=== PATIENT | female | born 1960 | race Caucasian/White ===

== ENCOUNTER → 2019-04-07 | Outpatient (CLI) | payer OTHER ==
[~2019-04-07] MED LIST: ASCO500T6 PO; CALC-654 PO; CRAN450T9 PO; INSU100I23 SQ; INSU100V6 SQ; L.AC1CAP6 PO; LEVO50TA6 PO; OMG1KC PO; TRIM100T PO
--- NOTE | 2019-04-07 17:01 | Diagnostic Imaging Report ---
INDICATION: Fall with right ankle pain. TECHNIQUE: AP, oblique, and lateral views of the right ankle were obtained at 4:42 PM. FINDINGS: There is a comminuted distal fibular fracture both at and cephalad to the ankle joint level with moderate separation of the fracture fragments. There is a horizontal fracture of the medial malleolus of the distal tibia with medial displacement of the distal fragment. The major fragment is displaced about 1 cm medially. There is lateral subluxation of the talus relative to the tibia. IMPRESSION: Distal tibial and fibular fractures as described above with malalignment of the ankle joint. Dictated by: Dictated on workstation # [id number]
== END ==
LOC: RAD FS 16:04
PROVIDERS: ATTEND Nurse Practitioner Family
DX: S82.831A Other fracture of upper and lower end of right fibula, initial encounter for closed fracture (principal); S82.51XA Displaced fracture of medial malleolus of right tibia, initial encounter for closed fracture; S93.01XA Subluxation of right ankle joint, initial encounter; W19.XXXA Unspecified fall, initial encounter
CPT/HCPCS: 73610

== ENCOUNTER 2019-04-08 10:47 | Inpatient (IN) | payer OTHER ==
[2019-04-08] VITALS (10 sets, daily range): BP systolic 100–156; BP diastolic 59–88
[~2019-04-08] VITALS: Ht 165.1 cm; Wt 71.8 kg
[2019-04-08] MEDS ORDERED: MELATONIN 3 MG TABLET PO PRN (11:15)
[2019-04-08] MEDS ORDERED: CALCIUM CARBONATE 500 MG (TUMS) TAB.CHEW PO PRN (11:15)
[2019-04-08] MEDS ORDERED: fentaNYL INJECTION 100 MCG/2 ML AMP IVP PRN (11:15)
[2019-04-08] MEDS ORDERED: DOCUSATE SODIUM 100 MG (COLACE) CAP PO PRN (11:15)
[2019-04-08] MEDS ORDERED: POLYETHYLENE GLYCOL 17 GM (MIRALAX) PACK PO PRN (11:15)
[2019-04-08] MEDS ORDERED: ALPRAZolam 0.25 MG (XANAX) TAB PO PRN (11:15)
[2019-04-08] MEDS ORDERED: LOPERAMIDE 2 MG (IMODIUM) TABLET PO PRN (11:15)
[2019-04-08] MEDS ORDERED: HYDROcodone/APAP 5 MG/325 MG (LORTAB) TAB PO PRN (11:15)
[2019-04-08] MEDS ORDERED: diphenhydrAMINE 25 MG TAB (BENADRYL) PO PRN (11:15)
[2019-04-08] MEDS ORDERED: ACETAMINOPHEN 500 MG TAB (TYLENOL) PO PRN ×2 (11:15→23:15)
--- OUTSIDE RECORDS SUMMARY | 2019-04-08 12:48 | XMS REPORT | Continuity of Care Document ---
Author Organization Unknown Address Unknown Allergies There is no data. Medications There is no data. Problems There is no data. Procedures There is no data. Results There is no data. Encounters ACCT No. Visit Date/Time Discharge Status Pt. Type Provider Facility Loc./Unit Complaint [id number] 02/17/2019 13:20:00 02/17/2019 23:59:59 CLS Outpatient [facility]
[2019-04-08] MEDS ORDERED: FAMOTIDINE 20MG/2ML IV (PEPCID) IV ONE (13:45)
[2019-04-08] MEDS ORDERED: SCOPOLAMINE 1.5 MG (TRANSDERM-SCOP) PATCH TOP ONE (13:45)
[2019-04-08] MEDS ORDERED: ONDANSETRON 4 MG/2 ML (SDV) Z0FRAN IV ONE (13:45)
--- NOTE | 2019-04-08 14:09 | History & Physical-Hospitalist ---
History of Present Illness HPI/Chief Complaint Chief complaint: Right ankle fracture with dislocation in need of urgent surgery. HPI: This is a 58yoWF clinic Pt of [facility] in [place] [facility] obed has a past medical history of type 1 DM maintained on Novolog before meals and long- acting in the morning, who fell yesterday during an episode of hypoglycemia and sustained an ankle injury. She presented to the clinic yesterday, X-Ray was obtained showing a complicated ankle fracture of a distal tibial and fibular fractures with dislocation of the ankle joint. Dr. Johnson called me directly requested admission to the hospitalist service for IRIF today to decrease a vascular necrosis possibility of the ankle joint. Currently she is not having any pain, dressing and brace were applied to the ankle and overall feels fine. She is prepared for Sx by Dr. Johnson today. I did review the office note from [facility] faxed over to me by supportive employment case manager and noted her Cipro allergy that causes a rash. Her is at the bedside. 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 She had two children, her son several years ago when he was [age] years old and was playing in a swollen [place] when he was taken under the current and drowned. Source: patient, family, RN/MD Exam Limitations: no limitations Date Seen 04/08/19 Time Seen by a Provider: 12:45 Attending Physician Abena Ferguson DO [facility] Referring Physician Date of Admission April 08, 2019 at 12:40 Home Medications & Allergies Home Medications Reviewed patient Home Medication Reconciliation performed by pharmacy medication reconciliations compressor service technician and/or nursing. Patients Allergies have been reviewed. Allergies Allergies Coded Allergies ciprofloxacin (Verified Allergy, Unknown, Rash, 04/08/19) Past Fofwpvl-Dpanbh-Rvmmtu Hx Past Med/Social Hx: Reviewed Nursing Past Med/Soc Hx, Reviewed and Corrections made Patient Social History Marrital Status: Employed/Student: unemployed (homemaker) Alcohol Use: Denies Use Recreational Drug Use: No Smoking Status: Never a Smoker Physical Abuse Screen: No Sexual Abuse: No Recent Foreign Travel: No Contact w/other who traveled: No Recent Hopitalizations: No Recent Infectious Disease Expo: No Seasonal Allergies Seasonal Allergies: Yes Past Medical History Female Reproductive Disorders: Endometriosis Musculoskeletal: Fractures Endocrine: Diabetes, Insulin dep Are Your Blood Sugars Over 250: Yes History of Blood Disorders: No Review of Systems Constitutional: see HPI, weakness EENTM: no symptoms reported Respiratory: no symptoms reported Cardiovascular: no symptoms reported Gastrointestinal: no symptoms reported Musculoskeletal: joint pain (right ankle) Skin: no symptoms reported Psychiatric/Neurological: No Symptoms Reported All Other Systems Reviewed Negative Unless Noted: Yes Physical Exam Physical Exam Vital Signs Vital Signs - First Documented 04/08/19 04/08/19 12:54 16:58 Temp 97.8 Pulse 77 Resp 18 B/P (MAP) 138/88 Pulse Ox 98 O2 Delivery Room Air O2 Flow Rate 6 Capillary Refill : Height, Weight, BMI Height: 5'5.00" Weight: 158lbs. 3.0oz. [id number]; BMI Method: General Appearance: No Apparent Distress, WD/WN, Anxious Eyes: Right Eye Normal Inspection, Right Eye PERRL HEENT: PERRL/EOMI, Normal ENT Inspection, Pharynx Normal, Moist Mucous Membranes Neck: Full Range of Motion, Normal Inspection, Non Tender Respiratory: Chest Non Tender, Lungs Clear, Normal Breath Sounds, No Accessory Muscle Use, No Respiratory Distress Cardiovascular: Regular Rate, Rhythm, No Edema, No Gallop, No JVD, No Murmur, Normal Peripheral Pulses Gastrointestinal: Normal Bowel Sounds, No Organomegaly, No Pulsatile Mass, Non Tender, Soft Back: Normal Inspection, No CVA Tenderness, No Vertebral Tenderness Extremity: Normal Capillary Refill, Normal Inspection, Normal Range of Motion (except right ankle in brace), Non Tender, No Calf Tenderness, No Pedal Edema Neurologic/Psychiatric: Alert, Oriented x3, No Motor/Sensory Deficits, Normal Mood/Affect Skin: Normal Color, Warm/Dry Lymphatic: No Adenopathy Results Results/Procedures Labs Laboratory Tests 04/08/19 14:40 Patient resulted labs reviewed. Assessment/Plan Admission Diagnosis Assessment: Complicated distal tibia and fibular fracture with dislocation in need of urgent repair Type 1 DM on insulin Recent hypoglycemia resulting in fall with subsequent right ankle fracture Plan: Monitor sugars closely DVT PPx after surgery Pain control Admission Status: Inpatient Order (span 2 midnights) Reason for Inpatient Admission: Type 1 DM with right ankle fracture will need close monitoring of sugars while under stress of surgery Diagnosis/Problems Diagnosis/Problems (1) Ankle fracture, right Status: Acute Qualifiers: Encounter type: initial encounter Fracture type: closed Qualified Codes: S82.891A - Other fracture of right lower leg, initial encounter for closed fracture (2) Type 1 diabetes mellitus Status: Chronic Qualifiers: Diabetes mellitus complication status: without complication Qualified Codes: E10.9 - Type 1 diabetes mellitus without complications Clinical Quality Measures DVT/VTE Risk/Contraindication: Risk Factor Score Per Nursin RFS Level Per Nursing on Admit: 4+=Very High ABENA FERGUSON DO April 08, 2019 14:09
[2019-04-08] MEDS ORDERED: LEVO50TA6 PO (14:12)
--- NOTE | 2019-04-08 14:14 | NUR ---
LEOBARDO MARROQUIN admitted to room 404-1, with an admitting diagnosis of RIGHT ANKLE FRACTURE, on 04/08/19, accompanied by .LEOBARDO MARROQUIN introduced to surroundings, call light, bed controls, phone, TV, temperature control, lights, meal times, smoking policy, visitor policy, side rail policy, bathrooms and showers. Patient Rights given to patient in the handbook. LEOBARDO MARROQUIN verbalizes understanding that [facility] is not responsible for the loss or damage to any personal effects or valuables that are kept in the patients posession during their hospitalization. LEOBARDO MARROQUIN verbalizes understanding of Interdisciplinary Patient Education. Patient and/or family were informed about the Rapid Response Team and its purpose.
--- NOTE | 2019-04-08 14:15 | NUR ---
RESTORATION OFFICER HERE TO TRANSPORT PATIENT TO PROCEDURE.
[2019-04-08] MEDS ORDERED: BUPIVACAINE 0.5% 30 ML (SENSORCAINE) VIAL ONE (14:18)
--- NOTE | 2019-04-08 14:24 | NUR ---
TOOK PATIENT DOWNSTAIRS PRIOR TO ME BEING ABLE TO INTERVIEW HER. I UPDATED THE MED REC WITH ONE PRESCRIPTION THAT WAS RECENTLY FILLED ACCORDING TO THE EXT MED HX. WILL CHECK BACK WHEN PATIENT RETURNS TO HER ROOM TO VERIFY.
[2019-04-08] MEDS: LACTATED RINGERS 1,000 ML IV PRN ×2 (14:27→16:47)
[2019-04-08] MEDS ORDERED: LIDOCAINE PF 2% 5 ML (XYLOCAINE) VIAL ONE (14:37)
[2019-04-08] MEDS ORDERED: proPOfol 200 MG/20 ML (DIPRIVAN) VIAL IV ONE (14:37)
[2019-04-08] MEDS ORDERED: SUCCINYLCHOLINE INJ 100 MG/5 ML SYR ONE (14:37)
[2019-04-08] MEDS ORDERED: ONDANSETRON 4 MG/2 ML (SDV) Z0FRAN ONE (14:37)
[2019-04-08] MEDS ORDERED: ROCURONIUM 10 MG/ML 5 ML SYRINGE IV ONE (14:37)
[2019-04-08] MEDS ORDERED: fentaNYL INJECTION 100 MCG/2 ML AMP ONE (14:38)
[2019-04-08] MEDS ORDERED: MIDAZOLAM 2 MG/2 ML (VERSED) VIAL ONE (14:38)
[2019-04-08 14:49] LABS: BASOPHILS % (AUTO) 0 % (0-10); EOSINOPHILS # (AUTO) 0.1 10^3/uL (0.0-0.3); EOSINOPHILS % (AUTO) 1 % (0-10); HEMATOCRIT 36 % (35-52); HEMOGLOBIN 12.2 G/DL (11.5-16.0); LYMPHOCYTES # (AUTO) 1.8 X 10^3 (1.0-4.0); LYMPHOCYTES % (AUTO) 25 % (12-44); MEAN CORPUSCULAR HEMOGLOBIN 29 PG (25-34); MEAN CORPUSCULAR HGB CONC 34 G/DL (32-36); MEAN CORPUSCULAR VOLUME 86 FL (80-99); MEAN PLATELET VOLUME 9.1 FL (7.4-10.4); MONOCYTES # (AUTO) 0.8 X 10^3 (0.0-1.0); MONOCYTES % (AUTO) 11 % (0-12); NEUTROPHILS # (AUTO) 4.6 X 10^3 (1.8-7.8); NEUTROPHILS % (AUTO) 63 % (42-75); PLATELET COUNT 225 10^3/uL (130-400); RED CELL DISTRIBUTION WIDTH 12.2 % (10.0-14.5); WHITE BLOOD COUNT 7.4 10^3/uL (4.3-11.0)
[2019-04-08] MEDS ORDERED: ceFAZolin INJECTION 1,000 MG VIAL IV ONE (15:00)
[2019-04-08] MEDS ORDERED: ceFAZolin INJECTION 2,000 MG ONE (15:02)
[2019-04-08 15:10] LABS: ALANINE AMINOTRANSFERASE 26 U/L (0-55); ALBUMIN 3.8 GM/DL (3.2-4.5); ALKALINE PHOSPHATASE 77 U/L (40-136); BILIRUBIN,TOTAL 0.5 MG/DL (0.1-1.0); BUN/CREATININE RATIO 9; CALCIUM 9.4 MG/DL (8.5-10.1); CARBON DIOXIDE 26 MMOL/L (21-32); CHLORIDE 104 MMOL/L (98-107); CREATININE SERUM 0.85 MG/DL (0.60-1.30); GFR ESTIMATED > 60; GLUCOSE 177 MG/DL (70-105); POTASSIUM 3.9 MMOL/L (3.6-5.0); SODIUM 137 MMOL/L (135-145); TOTAL PROTEIN 6.6 GM/DL (6.4-8.2)
[2019-04-08] MEDS ORDERED: morphine INJ 10 MG/ML 1ML (SYR OR VIAL) ONE (15:45)
[2019-04-08] MEDS ORDERED: SEVOFLURANE (ULTANE) 15 ML INHAL SOLN ONE (16:30)
--- NOTE | 2019-04-08 17:00 | Diagnostic Imaging Report ---
EXAMINATION: Right ankle, fluoroscopic images. COMPARISON: April 07, 2019. HISTORY: 58-year-old female, open reduction and internal fixation of right ankle fracture. FINDINGS: 160.3 seconds of fluoroscopic time was utilized for assistance with the procedure. There has been placement of sideplate and screw fixation hardware at the level of the distal fibula with syndesmotic screw. There are also two medial malleolar lag screws present. There is limited bone and trabecular detail on fluoroscopic imaging. There is altered contour of the posterior malleolus likely relating to prior posterior malleolar fracture. IMPRESSION: Fluoroscopy for assistance with open reduction and internal fixation of distal fibular and tibial fractures. Dictated by: Dictated on workstation # [id number]
[2019-04-08] MEDS ORDERED: ONDANSETRON 4 MG/2 ML (SDV) Z0FRAN IVP PRN (17:15)
[2019-04-08] MEDS ORDERED: HYDROmorphone 2 MG/ML VIAL (DILAUDID) IV ONE (17:15)
[2019-04-08] MEDS ORDERED: morphine INJ 10 MG/ML 1ML (SYR OR VIAL) IVP ONE (17:15)
[2019-04-08] MEDS ORDERED: PROMETHAZINE INJ 25 MG/ML (PHENERGAN) AMP IVP ONE (17:15)
[2019-04-08] MEDS ORDERED: MEPERIDINE (DEMEROL) INJ 50 MG/ML IVP ONE (17:15)
--- NOTE | 2019-04-08 17:55 | NUR ---
PATIENT BACK IN ROOM FROM RECOVERY. DEPENDENCY PROGRAM DIRECTOR HERE FOR BEDSIDE REPORT. RIGHT ANKLE OBSERVED AND PATIENT IS IN BED, STABLE ON ROOM AIR. NO COMPLAINTS OF PAIN OR FURTHER NEEDS AT THIS TIME.
[2019-04-08] MEDS: SENNA W/DOCUSATE (SENOKOT S) TABLET PO SCH (19:49)
[2019-04-08] MEDS ORDERED: ceFAZolin INJECTION 1,000 MG in WATER (STERILE) FOR INJECTION 10 ML IV ONE (22:45)
[2019-04-09] MEDS: KETOROLAC 30 MG/ML VIAL IVP PRN ×2 (02:07→12:52)
[2019-04-09 03:53] VITALS: BP 127/63
[2019-04-09] MEDS ORDERED: ceFAZolin INJECTION 1,000 MG in WATER (STERILE) FOR INJECTION 10 ML IV ONE (04:45)
[2019-04-09 05:47] LABS: BASOPHILS % (AUTO) 0 % (0-10); EOSINOPHILS # (AUTO) 0.1 10^3/uL (0.0-0.3); EOSINOPHILS % (AUTO) 1 % (0-10); HEMATOCRIT 35 % (35-52); HEMOGLOBIN 11.8 G/DL (11.5-16.0); LYMPHOCYTES # (AUTO) 1.5 X 10^3 (1.0-4.0); LYMPHOCYTES % (AUTO) 14 % (12-44); MEAN CORPUSCULAR HEMOGLOBIN 29 PG (25-34); MEAN CORPUSCULAR HGB CONC 33 G/DL (32-36); MEAN CORPUSCULAR VOLUME 88 FL (80-99); MEAN PLATELET VOLUME 9.6 FL (7.4-10.4); MONOCYTES % (AUTO) 10 % (0-12); NEUTROPHILS # (AUTO) 7.9 X 10^3 (1.8-7.8); NEUTROPHILS % (AUTO) 75 % (42-75); PLATELET COUNT 210 10^3/uL (130-400); WHITE BLOOD COUNT 10.5 10^3/uL (4.3-11.0)
[2019-04-09 06:10] LABS: ALANINE AMINOTRANSFERASE 22 U/L (0-55); ALBUMIN 3.6 GM/DL (3.2-4.5); ALKALINE PHOSPHATASE 81 U/L (40-136); BILIRUBIN,TOTAL 0.5 MG/DL (0.1-1.0); BUN/CREATININE RATIO 10; CALCIUM 8.7 MG/DL (8.5-10.1); CARBON DIOXIDE 27 MMOL/L (21-32); CHLORIDE 102 MMOL/L (98-107); CREATININE SERUM 0.81 MG/DL (0.60-1.30); GFR ESTIMATED > 60; GLUCOSE 98 MG/DL (70-105); POTASSIUM 3.6 MMOL/L (3.6-5.0); SODIUM 136 MMOL/L (135-145); TOTAL PROTEIN 6.3 GM/DL (6.4-8.2)
[2019-04-09 08:00] VITALS: BP 116/74
[2019-04-09] MEDS ORDERED: CRAN450T9 PO (08:37)
[2019-04-09] MEDS ORDERED: INSU100I23 SQ (08:37)
[2019-04-09] MEDS ORDERED: INSU100V6 SQ (08:37)
[2019-04-09] MEDS ORDERED: CALC-654 PO (08:37)
[2019-04-09] MEDS ORDERED: ASCO500T6 PO (08:37)
[2019-04-09] MEDS ORDERED: L.AC1CAP6 PO (08:37)
[2019-04-09] MEDS ORDERED: OMG1KC PO (08:37)
[2019-04-09] MEDS ORDERED: TRIM100T PO (08:37)
--- NOTE | 2019-04-09 08:38 | NUR ---
SPOKE WITH THE PATIENT ABOUT HER MEDICATIONS. SHE LISTED WHAT SHE IS TAKING. SHE RECEIVES SAMPLES OF HER LANTUS AND HUMALOG FROM HER DR OFFICE. SHE STATES SHE TAKES LEVOTHYROXINE DAILY AND TRIMETHOPRIM HS PRESCRIPTION WELL. SHE TAKES THE FOLLOWING OTC: PROBIOTIC DAILY VITAMIN C DAILY CALCIUM DAILY CRANBERRY BID FISH OIL DAILY
[2019-04-09] MEDS: SENNA W/DOCUSATE (SENOKOT S) TABLET PO SCH (08:42)
[2019-04-09] MEDS ORDERED: ENOXAPARIN 40 MG/0.4 ML (LOVENOX) SYR SC SCH (09:00)
[2019-04-09] MEDS ORDERED: ACHD5005 PO (09:50)
[2019-04-09] MEDS ORDERED: APIX2.5T PO (09:50)
[2019-04-09] MEDS ORDERED: SENN-141 PO (09:50)
--- NOTE | 2019-04-09 09:51 | Discharge Summary-Hospitalist ---
Diagnosis/Chief Complaint Date of Admission April 08, 2019 at 12:40 Date of Discharge Discharge Date: April 09, 2019 Admission Diagnosis Assessment: Complicated distal tibia and fibular fracture with dislocation in need of urgent repair Type 1 DM on insulin Recent hypoglycemia resulting in fall with subsequent right ankle fracture Plan: Monitor sugars closely DVT PPx after surgery Pain control Discharge Diagnosis (1) Ankle fracture, right Status: Acute (2) Type 1 diabetes mellitus Status: Chronic Discharge Summary Discharge Physical Exam Allergies: Coded Allergies: ciprofloxacin (Verified Allergy, Unknown, Rash, 04/08/19) Vitals & I&Os Vital Signs Date Time Temp Pulse Resp B/P (MAP) Pulse Ox O2 Delivery O2 Flow Rate FiO2 04/09/19 15:19 04/09/19 11:38 99.6 95 20 95 Room Air 04/08/19 17:36 3 General Appearance: No Apparent Distress, WD/WN, Chronically ill Respiratory: Chest Non Tender, Lungs Clear, Normal Breath Sounds, No Accessory Muscle Use, No Respiratory Distress Cardiovascular: Regular Rate, Rhythm, No Edema, No Gallop, No JVD, No Murmur, Normal Peripheral Pulses Extremity: Other (right foot in dressing and immobile) Neurologic/Psychiatric: Alert, Oriented x3, No Motor/Sensory Deficits, Normal Mood/Affect Hospital Course Was the Problem List Reviewed?: Yes Had an uneventful sx after Dr. Johnson repair the right ankle fracture with dislocation Pain is a little bit difficult to handle but the pain medication really helps Has not had a BM for two days so will initiate treatment Junito hunter was printed off in order to DC her in DVT prophylaxis She goes to [facility] in [place] also Reviewed home meds and started all of them No nausea noted DC is planned with close f/u Labs (last 24 hrs) Laboratory Tests 04/08/19 22:11: Glucometer 125H 04/09/19 05:06: Glucometer 74 04/09/19 05:17: White Blood Count 10.5, Red Blood Count 4.03L, Hemoglobin 11.8, Hematocrit 35, Mean Corpuscular Volume 88, Mean Corpuscular Hemoglobin 29, Mean Corpuscular Hemoglobin Concent 33, Red Cell Distribution Width 12.0, Platelet Count 210, Mean Platelet Volume 9.6, Neutrophils (%) (Auto) 75, Lymphocytes (%) (Auto) 14, Monocytes (%) (Auto) 10, Eosinophils (%) (Auto) 1, Basophils (%) (Auto) 0, Neutrophils # (Auto) 7.9H, Lymphocytes # (Auto) 1.5, Monocytes # (Auto) 1.0, Eosinophils # (Auto) 0.1, Basophils # (Auto) 0.0, Sodium Level 136, Potassium Level 3.6, Chloride Level 102, Carbon Dioxide Level 27, Anion Gap 7, Blood Urea Nitrogen 8, Creatinine 0.81, Estimat Glomerular Filtration Rate > 60, BUN/Creatinine Ratio 10, Glucose Level 98, Calcium Level 8.7, Corrected Calcium 9.0, Total Bilirubin 0.5, Aspartate Amino Transf (AST/SGOT) 26, Alanine Aminotransferase (ALT/SGPT) 22, Alkaline Phosphatase 81, Total Protein 6.3L, Albumin 3.6 04/09/19 10:28: Glucometer 193H Patient resulted labs reviewed. Pending Labs Discussion & Recommendations Discharge Planning: <30 minutes discharge planning Discharge Home Medications: Active Scripts Active Senna (Sennosides) 8.6 Mg Tablet 8.6 Mg PO BID Eliquis (Apixaban) 2.5 Mg Tablet 2.5 Mg PO BID Hydrocodone/Acetaminophen 5/325mg Tablet (Acetaminophen/Hydrocodone Bitart) 1 Tab Tab 1 Tab PO Q4H PRN Reported Fish Oil 1,000 mg Capsule (Logan 3 Polyunsat Fatty Acids) 1,000 Mg Cap 1,000 Mg PO DAILY Cranberry (Cranberry Fruit) 450 Mg Tablet 450 Mg PO BID Calcium 500 + D Tablet (Calcium Carbonate/Vitamin D3) 1 Each Tablet 1 Tab PO DAILY Vitamin C (Ascorbic Acid) 500 Mg Tablet 500 Mg PO DAILY Probiotic (L.acidoph & Paracasei,B.lactis) 1 Each Capsule 1 Cap PO DAILY Humalog Kwikpen (Insulin Lispro) 100 Unit/1 Ml Insuln.pen 5-8 Unit SQ TIDAC Lantus (Insulin Glargine,Hum.rec.anlog) 100 Unit/1 Ml Vial 25 Unit SQ DAILY Trimethoprim 100 Mg Tablet 100 Mg PO HS Levothyroxine Sodium 50 Mcg Tablet 50 Mcg PO DAILY Instructions to patient/family Please see electronic discharge instructions given to patient. Clinical Quality Measures DVT/VTE Risk/Contraindication: Risk Factor Score Per Nursin RFS Level Per Nursing on Admit: 4+=Very High Problem Qualifiers (1) Ankle fracture, right: Encounter type: initial encounter Fracture type: closed Qualified Codes: S82.891A - Other fracture of right lower leg, initial encounter for closed fracture (2) Type 1 diabetes mellitus: Diabetes mellitus complication status: without complication Qualified Codes: E10.9 - Type 1 diabetes mellitus without complications ARSLAN MCLEOD DO April 09, 2019 09:51
[2019-04-09] MEDS ORDERED: POLYETHYLENE GLYCOL 17 GM (MIRALAX) PACK PO ONE (10:00)
[2019-04-09] MEDS ORDERED: SENNA W/DOCUSATE (SENOKOT S) TABLET PO ONE (10:00)
--- NOTE | 2019-04-09 10:00 | NUR ---
CM/SS spoke with patient for discharge plans. She did not feel had any needs at discharge. Patient provided with a Eliquis card for 30day trial.
--- NOTE | 2019-04-09 10:14 | Physical Therapy Evaluation ---
PT Evaluation-General Medical Diagnosis Admission Date April 08, 2019 at 12:40 Medical Diagnosis: ORIF right ankle Onset Date: April 08, 2019 Therapy Diagnosis Therapy Diagnosis: impaired mobility, endurance, balance Height/Weight Height (Feet): 5 Height (Inches): 5.00 Weight (Pounds): 158 Weight (Ounces): 3.0 Precautions Precautions/Isolations: Fall Prevention, Standard Precautions Weight Bear Status Right Lower Extremity: Right Non Weight Bearing Referral Physician: Richard Johnson DPM Reason for Referral: Evaluation/Treatment Medical History Additional Medical History Past Medical History Female Reproductive Disorders: Endometriosis Musculoskeletal: Fractures Endocrine: Diabetes, Insulin dep Are Your Blood Sugars Over 250: Yes History of Blood Disorders: No Reviewed History: Yes Social History Home: Single Level Current Living Status: Spouse Entry Into Home: Stairs Without Railing PT Steps Into Home: 2 Prior/Core FIM Prior Level of Function Therapy Code Descriptions/Definitions Functional Loving Measure: 0=Not Assessed/NA 4=Minimal Assistance 1=Total Assistance 5=Supervision or Setup 2=Maximal Assistance 6=Modified Loving 3=Moderate Assistance 7=Complete Loving Therapy Quality Codes: 6 Independent with activity with or without an assistive device 5 Patient requires set up or clean up by helper. Patient completes activity by themselves 4 Supervision or touching assist (CGA). [place] provide cues , steadying assist 3 The helper provides less than half the effort to complete the activity 2 The helper provides more than half the effort to complete the activity 1 Dependent. The helper does all the effort to complete an activity 7 Patient refused to complete or attempt activity 9 The patient did not perform the activity before the current illness or injury 88 Not attempted due to Medical conditions or safety concerns Functional Abilities and Goals: Independent: Patient completed the activities by him/herself, with or without an assistive device, with no assistance from a helper. Needed Some Help: Patient needed partial assistance from another person to complete activities. Dependent: A helper completed the activities for the patient. Unknown: Not Applicable: Bed Mobility: 7 Transfers (B,C,W/C) (FIM): 7 Gait: 7 Stairs: 7 Indoor Mobility (Ambulation): Independent Stairs: Independent PT Evaluation-Current Subjective Patient in bed pre tx, agrees to PT, has no pain at rest. Pt/Family Goals "I hope to go home today". Objective Patient Orientation: Person, Place, Situation splint right ankle and leg ROM/Strength ROM Lower Extremities WNL except for right ankle Strength Lower Extremities right lower extremity (hip flexion 4+/5), left lower extremity (hip flexion 4/5, knee flexion 5/5, knee extension 5/5, dorsiflexion 5/5) Neuromuscular (Tone, Coordination, Reflexes) NT Sensory Vision: Wears Glasses Hearing: Functional Sensation Right Lower Extremit: Intact Sensation Left Lower Extremity: Intact Transfers Therapy Code Descriptions/Definitions Functional Loving Measure: 0=Not Assessed/NA 4=Minimal Assistance 1=Total Assistance 5=Supervision or Setup 2=Maximal Assistance 6=Modified Loving 3=Moderate Assistance 7=Complete Loving Transfers (B, C, W/C) (FIM): 5 Scootin Rollin Supine to/from Sit: 6 Sit to/from Stand: 5 Gait Mode of Locomotion: Walk Anticipated Mode of Locomotion: Walk Gait (FIM): 2 Distance: 60' Gait Level of Assist: 5 Gait Persons Needed: 1 Gait Assistive Device: FWW Comments/Gait Description Patient has little difficulty maintaining NWB on right leg, hops easily on her left leg using the walker. She did need cues to slow down. Balance Sitting Static: Normal Sitting Dynamic: Normal Standing Static: Good Standing Dynamic: Good Treatment supine RLE exercises x15 (HS, QS) Assessment/Needs Patient has impaired mobility, strength, balance, endurance. She does well with maintaining her NWB on the right leg with transfers and ambulation. Rehab Potential: Fair PT Short Term Goals Short Term Goals Time Frame: Apr 16, 2019 Transfers (B,C,W/C) (FIM): 6 Gait (FIM): 6 Gait Distance Comment: 150' Gait Level of Assist: 6 Gait Assistive Device: FWW PT Plan Problem List Problem List: Activity Tolerance, Functional Strength, Safety, Balance, Gait, Transfer Treatment/Plan Treatment Plan: Continue Plan of Care Treatment Plan: Education, Functional Activity Carolyn, Functional Strength, Gait, Safety, Therapeutic Exercise, Transfers Treatment Duration: Apr 16, 2019 Frequency: 11 times per week Estimated Hrs Per Day: .25 hour per day (15-30') Patient and/or Family Agrees t: Yes Safety Risks/Education Patient Education: Gait Training, Transfer Techniques, Reviewed Precautions, Correct Positioning, Safety Issues Teaching Recipient: Patient Teaching Methods: Demonstration, Discussion Response to Teaching: Reinforcement Needed Discharge Recommendations Plan Patient will perform bed mobility and transfer training, balance and endurance training, functional strengthening, stair training, gait training, and education, to improve functional mobility and independence at home. Therapy D/C Recommendations: Home w/ Family Support Time/GCodes Time In: 0950 Time Out: 1005 Total Billed Treatment Time: 15 Total Billed Treatment 1 visit EVL 15' BARRY CROWLEY PT April 09, 2019 10:14
[2019-04-09 11:38] VITALS: BP 104/67
--- NOTE | 2019-04-09 13:23 | Anesthesia-General Post-Op ---
General Patient Condition Mental Status/LOC: Same as Preop Cardiovascular: Satisfactory Nausea/Vomiting: Absent Respiratory: Satisfactory Pain: Controlled Complications: Absent Post Op Complications Complications None Follow Up Care/Instructions Patient Instructions None needed. Anesthesia/Patient Condition Patient Condition Patient is doing well, no complaints, stable vital signs, no apparent adverse anesthesia problems. No complications reported per nursing. VIRGIE GUERRERO CRNA April 09, 2019 13:23
[2019-04-10] MEDS ORDERED: LEVOTHYROXINE 50 MCG (LEVOTHROID) TAB PO SCH (06:30)
[2019-04-10] MEDS ORDERED: OMEGA 3 (FISH OIL) 1000 MG CAP PO SCH (09:00)
[2019-04-10] MEDS ORDERED: ASCORBIC ACID (VIT C) 500 MG TABLET PO SCH (09:00)
--- NOTE | 2019-04-10 09:13 | Consultation ---
History of Present Illness History of Present Illness Patient Consulted On(danica/time) 04/08/19 14:45 Date Seen by Provider: April 08, 2019 Time Seen by Provider: 14:45 History of Present Illness Pt present as direct admit from [facility] for dislocated Bimalleolar ankle fracture to the E. She fractured the ankle on 04/06/19 after a slip and fall. She states she wasn't seen until the next day because it was . Her PCP saw her and ordered x-rays at another facility didn't get the read until the morning of 04/08/19 and then called my office with concerns of the injury. Due to the nature of the injury and history of IDDM I have requested the patient to be direct admitted for urgent surgery today. This is documented on 04/10 because my computer login was not working on 04/08 and IT was not available to assist with my problems. Allergies and Home Medications Allergies Coded Allergies: ciprofloxacin (Verified Allergy, Unknown, Rash, 04/08/19) Home Medications Apixaban 2.5 Mg Tablet, 2.5 MG PO BID Prescribed by: ARSLAN MCLEOD on 04/09/19 0950 Ascorbic Acid 500 Mg Tablet, 500 MG PO DAILY, (Reported) Calcium Carbonate/Vitamin D3 1 Each Tablet, 1 TAB PO DAILY, (Reported) Cranberry Fruit 450 Mg Tablet, 450 MG PO BID, (Reported) Hydrocodone Bit/Acetaminophen 1 Tab Tab, 1 TAB PO Q4H PRN for PAIN-MODERATE Prescribed by: ARSLAN MCLEOD on 04/09/19 0950 Insulin Glargine,Hum.rec.anlog 100 Unit/1 Ml Vial, 25 UNIT SQ DAILY, (Reported) Insulin Lispro 100 Unit/1 Ml Insuln.pen, 5-8 UNIT SQ TIDAC, (Reported) L.acidoph & Paracasei,B.lactis 1 Each Capsule, 1 CAP PO DAILY, (Reported) Levothyroxine Sodium 50 Mcg Tablet, 50 MCG PO DAILY, (Reported) Kennedy 3 Polyunsat Fatty Acids 1,000 Mg Cap, 1,000 MG PO DAILY, (Reported) Sennosides 8.6 Mg Tablet, 8.6 MG PO BID Prescribed by: ARSLAN MCLEOD on 04/09/19 0950 Trimethoprim 100 Mg Tablet, 100 MG PO HS, (Reported) Patient Home Medication List Home Medication List Reviewed: Yes Past Pfhupdx-Jfxfkp-Hfkmqs Hx Past Med/Social Hx: Reviewed Nursing Past Med/Soc Hx, Reviewed and Corrections made Patient Social History Alcohol Use: Denies Use Recreational Drug Use: No Smoking Status: Never a Smoker Recent Foreign Travel: No Contact w/Someone Who Travel: No Recent Infectious Disease Expo: No Recent Hopitalizations: No Seasonal Allergies Seasonal Allergies: Yes Past Medical History Surgeries: Yes (EX-LAP) Respiratory: No Cardiac: No Neurological: Yes Female Reproductive Disorders: Endometriosis Genitourinary: Yes (UTI) Gastrointestinal: No Musculoskeletal: Yes Fractures Endocrine: Yes Diabetes, Insulin dep Are Your Blood Sugars Over 250: Yes HEENT: No Cancer: No Psychosocial: No Integumentary: No Blood Disorders: No Review of Systems-General Constitutional: no symptoms reported Cardiovascular: no symptoms reported Physical Exam-General Problems Physical Exam Vital Signs Vital Signs - First Documented 04/08/19 04/08/19 12:54 16:58 Temp 97.8 Pulse 77 Resp 18 B/P (MAP) 138/88 Pulse Ox 98 O2 Delivery Room Air O2 Flow Rate 6 Capillary Refill : Less Than 3 Seconds Extremities: other (RLE with N/V status intact, active ROM to the digits, pain to the ankle and guarding noted there is lateral displacement of the ankle joint, +1 edemal, skin tenting over the medial malleolus no open wound no skin necrosis noted a this time. ) Assessment/Plan Assessment/Plan Admission Diagnosis/Plan Dislocated Bimalleolar Ankle Fracture RLE -NWB RLE -Plan for Urgent ORIF vs possible External Fixator of the RLE -Medical Comanagement per farnaz Sauceda for urgent surgery Admission Status: Observation Clinical Quality Measures DVT/VTE Risk/Contraindication: Risk Factor Score Per Nursin RFS Level Per Nursing on Admit: 4+=Very High KARTIK MACKAY DPM April 10, 2019 09:13
--- NOTE | 2019-04-10 09:18 | Progress Note-Post Operative ---
Post-Operative Progess Note Surgeon (s)/Director Presales (s) Surgeon KARTIK MACKAY DPM Director Presales: none Pre-Operative Diagnosis Trimalleolar Ankle Fracture RLE Post-Operative Diagnosis same Procedure & Operative Findings Date of Procedure 04/10/19 Procedure Performed/Findings ORIF Trimalleolar Ankle Fracture Anesthesia Type GA Estimated Blood Loss Estimated blood loss (mL): Minimal Specimens/Packing Specimens Removed none KARTIK MACKAY DPM April 10, 2019 09:18
--- NOTE | 2019-04-10 09:21 | Podiatry Progress Note ---
Standard Progress Note Progress Notes/Assess & Plan Date Seen by a Provider: April 09, 2019 Time Seen by a Provider: 12:00 Progress/Assessment & Plan Post Op Day 1 ORIF Trimalleolar Ankle Fracture RLE NAD, Denies F/C/N/V, denies SOB/CP Splint clean dry intact to the RLE, calves supple NT, N/V intact to the digits RLE. Final Diagnosis S/P ORIF trimal ankle fracture RLE -continue NWB RLE -PT/OT -DVT prophylaxis -Okay for D/C today -Follow up in my office in 1 week Pt seen on 04/09 dictation completed on 04/10/19 due to computer issues and time in hospital. KARTIK MACKAY DPM April 10, 2019 09:21
--- NOTE | 2019-04-30 21:14 | OPERATIVE REPORT ---
DATE OF SERVICE: 04/08/2019 SURGEON: Richard Mackay DPM. PRISON GUARD SUPERVISOR: None. PREOPERATIVE DIAGNOSIS: Right trimalleolar ankle fracture. POSTOPERATIVE DIAGNOSIS: Right trimalleolar ankle fracture. PROCEDURE PERFORMED: Open reduction and internal fixation of right trimalleolar ankle fracture with syndesmotic stabilization. ANESTHESIA: General anesthesia. HEMOSTASIS: Pneumatic thigh tourniquet at 300 mmHg. ESTIMATED BLOOD LOSS: Minimal. MATERIALS USED: Synthes plates and screws, 3-0 Vicryl, 3-0 nylon and skin tj. INTRAOPERATIVE INJECTABLES: None. COMPLICATIONS: None. INDICATIONS: The patient is a 59-year-old female, who had a trimalleolar ankle fracture after a slip and fall. She was seen by her primary care physician in [place], who has noted that she had a skin tenting medially and significant ankle deformity. She was then admitted to [facility] and taken to the operating room urgently due to skin at risk from the severity of her deformity and history of diabetes and poor healing. The patient was made aware of the risks and benefits of the surgery as well as alternatives to undergoing and signed consent prior to being taken back to the OR. DESCRIPTION OF PROCEDURE: Under mild sedation, the patient was brought into the OR and placed on the operating table in supine position. Following administration of general anesthesia, pneumatic thigh tourniquet was placed on the right lower extremity. The right lower extremity was scrubbed, prepped and draped in aseptic manner. A proper timeout was performed. The right lower extremity was identified as the surgical site. Next, an approximately 12-cm incision was made at the lateral aspect of the fibula. The incision was deepened down to the level of bone with care being taken to avoid damage to neurovascular structures. All bleeders were cauterized and ligated as necessary. Incision was deepened down to the level of the fibula and there was noted to be a comminuted distal fibular fracture. The fracture was reduced and temporarily fixated with K-wires. There was also a large Wagstaffe fracture of the anterior aspect of the distal fibula at the level of the ankle joint. This was also reduced and temporarily fixated with K-wires. Next, fluoroscopic views were taken and there was an adequate reduction of the distal fibula noted. An interfragmentary screw was placed across the Wagstaffe fragment with a washer was used for purchase of the fracture fragment. Next, the second interfragmentary screw was also placed across the primary fracture fragment of the distal fibula. There was excellent compression across this fracture as well. The lateral plate was then fixated with a combination of locking and nonlocking screws and there was stable rigid internal fixation across the fibular fracture at this time. Next, a fracture clamp was used percutaneously to reduce the medial malleolus fracture. There was extensive skin tenting was noted and swelling of the area of the medial ankle. Thus, it was not indicative for a full open reduction and a percutaneous reduction of the medial malleolus was achieved using a fracture clamp and two small stab incisions. Fluoroscopic views were taken. There was adequate reduction of the medial malleolar fracture was noted. Next, two more stab incisions were made to the distal aspect of the medial malleolus and guidepins were cannulated and 4.0 partially threaded screws were placed across the medial malleolus across the fracture site. Fluoroscopic views were taken. There was adequate placement of the guidepins. The appropriate sized screws were then selected and inserted across the fracture fragment. There was excellent compression of the fracture fragment. At that time, has stable rigid internal fixation. Next, stressed abduction and external rotation test was performed of the ankle and it was noted that the syndesmosis was deemed to be unstable at this time, but the indication for syndesmotic stabilization was necessary. The ankle was held in neutral position and a 3.5-mm compression screw was placed using lag technique from the lateral aspect of the fibula into the medial cortex of the tibia. The syndesmosis was manually reduced with placement of the screw and the screw was appropriately tensioned. The ankle was then restressed and there was an adequate reduction of the syndesmosis and stable rigid internal fixation was noted. All wounds were flushed with copious amounts of sterile saline. Deep tissues were then closed with 3-0 Vicryl, subcutaneous tissues reapproximated with 3-0 Vicryl and the skin of the lateral incision was reapproximated and closed using skin tj. The skin over the medial stab wounds was also fixated using 3-0 nylon. The foot was then dressed with a dry sterile dressing consisting of 4 x 4's, cast padding and an Felipe wrap. The patient tolerated the procedure and anesthesia well followed by a posterior splint with splint material and Felipe wrap. The patient tolerated the procedure and anesthesia well. She was transferred from OR to recovery with vital signs stable and neurovascular status intact to the right lower extremity. Job ID: [id number] DocumentID: [id number] Dictated Date: 04/30/2019 16:39:25 Barrel Endshake Adjuster Date: 04/30/2019 21:13:23 Dictated By: RICHARD MACKAY DPM
== END 2019-04-09 14:45 | disposition home or self-care (01) | DRG 494 ==
LOC: 4TH 12:40
PROVIDERS: ADMIT Internal Medicine; ATTEND Internal Medicine
PROC: 0QSJ04Z Reposition Right Fibula with Internal Fixation Device, Open Approach (ICD-10-PCS; 2019-04-08)
PROC: 0MQQ0ZZ Repair Right Ankle Bursa and Ligament, Open Approach (ICD-10-PCS; 2019-04-08)
PROC: 0QSG04Z Reposition Right Tibia with Internal Fixation Device, Open Approach (ICD-10-PCS; principal; 2019-04-08 15:01)
DX: S82.851A Displaced trimalleolar fracture of right lower leg, initial encounter for closed fracture (principal); E10.9 Type 1 diabetes mellitus without complications; W19.XXXA Unspecified fall, initial encounter; Z79.4 Long term (current) use of insulin
CPT/HCPCS: 36415; 80053; 82962; 85025

== ENCOUNTER → 2019-04-16 | Outpatient (CLI) | payer OTHER ==
[~2019-04-16] MED LIST changes: +ACHD5005 PO; +APIX2.5T PO; +SENN-141 PO
--- NOTE | 2019-04-16 12:25 | Diagnostic Imaging Report ---
PROCEDURE: US right lower extremity venous. TECHNIQUE: Multiple real-time grayscale images were obtained over the right lower extremity in various projections. Additional spectral analysis and color Doppler duplex images were also obtained. INDICATION: Right leg pain. Comparison: None available. Findings: The right common femoral, femoral and popliteal veins are patent by color doppler imaging and without DVT. Visualized proximal aspects of the greater saphenous, deep femoral, posterior tibial and peroneal veins are also patent. All of the evaluated deep venous structures demonstrate normal compressibility and waveform augmentation where applicable. Impression: No right lower extremity deep venous thrombosis (DVT). Dictated by: Dictated on workstation # [id number]
== END ==
LOC: RAD 11:40
PROVIDERS: ATTEND Podiatrist
DX: M79.661 Pain in right lower leg (principal)